=== PATIENT | female | born 1995 | race Caucasian/White ===

== ENCOUNTER → 2020-08-09 11:16 | Observation (INO) ==
[2020-08-08 21:56] LABS: Bacteria,Urine Few per hpf (None-Few); Bilirubin,Urine Negative (Negative); Blood,Urine Trace (Negative); Clarity,Urine Turbid (Clear); Color,Urine Yellow (Yellow); Glucose,Urine (UA) >=1000 mg/dL (Normal); Ketones,Urine >150 mg/dL (Negative); Leukocyte Esterase,Urine Small (Negative); Mucus,Urine Few per lpf (None-Few); Nitrite,Urine Negative (Negative); Protein,Urine 100 mg/dL (Neg-Trace); Specific Gravity,Urine > 1.030 (1.010-1.025); Squamous Epithelial Cell,Urine Few per hpf (None-Few); Urobilinogen,Urine Normal (Normal)
[2020-08-08 22:14] LABS: BUN/Creatinine Ratio 22 (6-26); Blood Urea Nitrogen 10 mg/dL (6-20); Calcium 9.1 mg/dL (8.6-10.3); Carbon Dioxide 18 mEq/L (23-29); Chloride 102 mEq/L (98-107); Glucose 144 mg/dL (70-105); Osmolality,Calculated 280 (280-300); Potassium 3.9 mEq/L (3.5-5.1); Sodium 134 mEq/L (136-145); eGFR For African Americans > 60 (> 60); eGFR For Non-African Americans > 60 (> 60)
[2020-08-08 23:10] LABS: Basophils # 0.1 K/mcL (0.0-0.2); Basophils % 0.2 %; Eosinophils # 0.1 K/mcL (0.0-0.6); Eosinophils % 0.4 %; Hematocrit 37.9 % (35.3-44.9); Hemoglobin 11.5 g/dL (11.5-15.4); Immature Granulocytes % 0.5 % (0-4); Lymphocytes # 0.5 K/mcL (0.6-4.6); Lymphocytes % 2.5 %; Mean Corpuscular HGB Conc 30.3 g/dL (31.6-35.5); Mean Platelet Volume 9.8 fL (9.4-12.4); Monocytes # 0.7 K/mcL (0.0-1.3); Monocytes % 3.1 %; Neutrophils # 20.3 K/mcL (1.6-8.9); Platelet Count 463 K/mcL (140-400); Red Blood Count 4.26 M/mcL (3.82-4.97); Red Cell Distribution Width 14.3 % (11.5-14.5); Segmented Neutrophils % 93.3 %; White Blood Count 21.8 K/mcL (4.3-11.1)
[2020-08-09 00:16] LABS: Adenovirus Not Detected (Not Detect); Bordetella Pertussis Not Detected (Not Detect); Chlamydophila pneumoniae Not Detected (Not Detect); Coronavirus 229E Not Detected (Not Detect); Coronavirus HKU1 Not Detected (Not Detect); Coronavirus NL63 Not Detected (Not Detect); Coronavirus OC43 Not Detected (Not Detect); Human Metapneumovirus Not Detected (Not Detect); Human Rhinovirus/Enterovirus Not Detected (Not Detect); Influenza A Subtype 2009 H1 Not Detected (Not Detect); Influenza B Not Detected (Not Detect); Mycoplasma pneumoniae Not Detected (Not Detect); Parainfluenza Virus 1 Not Detected (Not Detect); Parainfluenza Virus 2 Not Detected (Not Detect); Parainfluenza Virus 3 Not Detected (Not Detect); Parainfluenza Virus 4 Not Detected (Not Detect); Respiratory Syncytial Virus Not Detected (Not Detect); SARS-CoV-2 Not Detected (Not Detect)
[2020-08-09 05:14] LABS: Basophils % 0.2 %; Eosinophils # 0.1 K/mcL (0.0-0.6); Eosinophils % 0.3 %; Hematocrit 33.4 % (35.3-44.9); Hemoglobin 10.4 g/dL (11.5-15.4); Immature Granulocytes % 0.8 % (0-4); Lymphocytes # 0.9 K/mcL (0.6-4.6); Lymphocytes % 5.4 %; Mean Corpuscular HGB Conc 31.1 g/dL (31.6-35.5); Mean Corpuscular Hemoglobin 27.2 pg (28.0-33.3); Mean Corpuscular Volume 87.4 fL (83.0-100.0); Mean Platelet Volume 9.3 fL (9.4-12.4); Monocytes # 0.7 K/mcL (0.0-1.3); Monocytes % 4.5 %; Neutrophils # 14.7 K/mcL (1.6-8.9); Platelet Count 384 K/mcL (140-400); Red Blood Count 3.82 M/mcL (3.82-4.97); Red Cell Distribution Width 14.3 % (11.5-14.5); Segmented Neutrophils % 88.8 %; White Blood Count 16.6 K/mcL (4.3-11.1)
[~2020-08-09 11:16] MED LIST: Acetaminophen 325 MG TABLET PO PRN; Insulin DETEMIR 100 UNIT/ML X5UNITS SUBQ SCH; Insulin LISPRO 300 UNITS/3 ML VIAL SUBQ SCH; Ringers Solution, Lactated 1,000 ML IVC ONE; Ringers Solution, Lactated 1,000 ML IVC SCH
== END | disposition home or self-care (01) ==
LOC: 1NENULAB
PROVIDERS: ADMIT Advanced Practice Midwife; ATTEND Advanced Practice Midwife

== ENCOUNTER 2020-09-02 18:03 | Inpatient (IN) ==
[~2020-09-02 18:03] MED LIST changes: +*HR* FentaNYL (PF) 100 MCG/2 ML VIAL ONE; +*HR* Morphine Sulfate/PF 10 MG/10 ML AMPUL ONE; -Acetaminophen 325 MG TABLET PO PRN; +CeFAZolin 2,000 MG/50 ML BAG IVPB ONE; +Famotidine 20 MG/2 ML VIAL IVP ONE; -Insulin DETEMIR 100 UNIT/ML X5UNITS SUBQ SCH; -Insulin LISPRO 300 UNITS/3 ML VIAL SUBQ SCH; +Metoclopramide 10 MG/2 ML VIAL IVP ONE; +Oxytocin 20 units/ LR 1000 mL 20 UNIT/1,000 ML BAG IVC ONE; -Ringers Solution, Lactated 1,000 ML IVC SCH; +Ringers Solution, Lactated 1,000 ML ONE
[2020-09-02] MEDS ORDERED: EPHEDrine 50 MG/ML VIAL ONE (18:04)
[2020-09-02] MEDS ORDERED: *HR* Midazolam HCl 2 MG/2 ML VIAL ONE (18:04)
[2020-09-02] MEDS ORDERED: Ringers Solution, Lactated 1,000 ML IVC SCH ×2 (18:15→21:51)
[2020-09-02] MEDS ORDERED: Oxytocin 20 units/ LR 1000 mL 20 UNIT/1,000 ML BAG IVC SCH ×2 (18:15→21:51)
[2020-09-02 18:28] LABS: Basophils % 0.3 %; Eosinophils # 0.4 K/mcL (0.0-0.6); Eosinophils % 2.3 %; Hematocrit 38.2 % (35.3-44.9); Hemoglobin 11.8 g/dL (11.5-15.4); Immature Granulocytes % 0.6 % (0-4); Lymphocytes # 2.2 K/mcL (0.6-4.6); Lymphocytes % 13.9 %; Mean Corpuscular HGB Conc 30.9 g/dL (31.6-35.5); Mean Corpuscular Hemoglobin 27.2 pg (28.0-33.3); Mean Platelet Volume 9.5 fL (9.4-12.4); Monocytes # 0.7 K/mcL (0.0-1.3); Monocytes % 4.5 %; Neutrophils # 12.2 K/mcL (1.6-8.9); Platelet Count 386 K/mcL (140-400); Red Blood Count 4.34 M/mcL (3.82-4.97); Red Cell Distribution Width 14.8 % (11.5-14.5); Segmented Neutrophils % 78.4 %; White Blood Count 15.6 K/mcL (4.3-11.1)
[2020-09-02] MEDS ORDERED: *HR* Oxytocin 10 UNIT/ML VIAL IM ONE ×2 (18:48→18:50)
[2020-09-02 18:51] LABS: Influenza A PCR Negative (Negative); Influenza B PCR Negative (Negative); Resp. Syncytial Virus PCR Negative (Negative)
[2020-09-02] MEDS ORDERED: Ketorolac 30 MG/ML VIAL ONE (18:51)
[2020-09-02] MEDS ORDERED: Dexamethasone 4 MG/ML VIAL ONE (18:51)
[2020-09-02 19:15] LABS: SARS-CoV-2 by PCR (In House) Negative (Negative)
[2020-09-02] MEDS ORDERED: *HR* FentaNYL (PF) 100 MCG/2 ML VIAL ONE (19:22)
[2020-09-02] MEDS ORDERED: *HR* Dextrose 50 % in Water (Vial) 50 ML VIAL IVP PRN (20:40)
[2020-09-02] MEDS ORDERED: Dextrose Gel 15 GM/37.5 ML TUBE PO PRN ×2 (20:40)
[2020-09-02] MEDS ORDERED: D5% in Water 1,000 ML IVC PRN (20:40)
[2020-09-02] MEDS ORDERED: Ondansetron 4 MG/2 ML VIAL IVP PRN (21:51)
[2020-09-02] MEDS ORDERED: Rho Immune Globulin 1,500 UNIT SYRINGE IM ONE (21:51)
[2020-09-02] MEDS ORDERED: Metoclopramide 10 MG/2 ML VIAL IVP PRN (21:51)
[2020-09-02] MEDS ORDERED: *HR* Nalbuphine 10 MG/ML AMPUL IV PRN (21:51)
[2020-09-02] MEDS ORDERED: Sennosides 8.6 MG TABLET PO PRN (21:51)
[2020-09-03 05:59] LABS: Basophils % 0.2 %; Eosinophils % 0.1 %; Hematocrit 34.1 % (35.3-44.9); Hemoglobin 10.5 g/dL (11.5-15.4); Immature Granulocytes % 0.7 % (0-4); Lymphocytes # 1.6 K/mcL (0.6-4.6); Lymphocytes % 8.2 %; Mean Corpuscular HGB Conc 30.8 g/dL (31.6-35.5); Mean Corpuscular Hemoglobin 27.2 pg (28.0-33.3); Mean Corpuscular Volume 88.3 fL (83.0-100.0); Monocytes # 0.7 K/mcL (0.0-1.3); Monocytes % 3.6 %; Neutrophils # 17.2 K/mcL (1.6-8.9); Platelet Count 405 K/mcL (140-400); Red Blood Count 3.86 M/mcL (3.82-4.97); Red Cell Distribution Width 14.8 % (11.5-14.5); Segmented Neutrophils % 87.2 %; White Blood Count 19.8 K/mcL (4.3-11.1)
[2020-09-03] MEDS: Insulin LISPRO 300 UNITS/3 ML VIAL SUBQ SCH ×3 (07:49→16:53)
[2020-09-03] MEDS: Prenatal Vit/FA 1 EACH TABLET PO SCH (07:51)
[2020-09-03] MEDS: Ibuprofen 600 MG TABLET PO PRN ×2 (07:51→16:54)
[2020-09-03] MEDS ORDERED: Insulin LISPRO 300 UNITS/3 ML VIAL SUBQ SCH (08:00)
[2020-09-03] MEDS ORDERED: NON-FORMULARY MEDICATION 1 EACH EACH (Prenatal Vitamin Tablet 1 TAB) PO SCH (09:00)
[2020-09-03] MEDS ORDERED: Insulin DETEMIR 100 UNIT/ML X5UNITS SUBQ SCH (09:00)
[2020-09-03] MEDS: Simethicone 80 MG TAB.CHEW PO PRN (11:13)
[2020-09-03] MEDS: Acetaminophen 325 MG TABLET PO SCH ×2 (11:13→19:57)
[2020-09-03] MEDS: Insulin DETEMIR 100 UNIT/ML X5UNITS SUBQ SCH (21:46)
[2020-09-04] MEDS: Ibuprofen 600 MG TABLET PO PRN ×4 (00:58→23:17)
[2020-09-04] MEDS: *HR* OxyCODONE/APAP 5/325 TABLET PO PRN ×3 (05:02→23:17)
[2020-09-04] MEDS: Acetaminophen 325 MG TABLET PO SCH (05:02)
[2020-09-04] MEDS: Insulin LISPRO 300 UNITS/3 ML VIAL SUBQ SCH ×3 (08:09→16:50)
[2020-09-04] MEDS: Insulin DETEMIR 100 UNIT/ML X5UNITS SUBQ SCH ×2 (08:13→23:18)
[2020-09-04] MEDS: Simethicone 80 MG TAB.CHEW PO PRN (23:18)
[2020-09-05] MEDS: Ibuprofen 600 MG TABLET PO PRN ×2 (06:40→19:49)
[2020-09-05] MEDS: *HR* OxyCODONE/APAP 5/325 TABLET PO PRN ×4 (06:41→23:58)
[2020-09-05] MEDS: Acetaminophen 325 MG TABLET PO SCH ×4 (07:46→18:00)
[2020-09-05] MEDS: Prenatal Vit/FA 1 EACH TABLET PO SCH (07:59)
[2020-09-05] MEDS: Simethicone 80 MG TAB.CHEW PO PRN (07:59)
[2020-09-05] MEDS: Insulin DETEMIR 100 UNIT/ML X5UNITS SUBQ SCH ×3 (08:00→23:58)
[2020-09-05] MEDS: Insulin LISPRO 300 UNITS/3 ML VIAL SUBQ SCH ×3 (08:02→19:49)
[2020-09-06 07:27] VITALS: BP 121/75
[2020-09-06] MEDS: Insulin LISPRO 300 UNITS/3 ML VIAL SUBQ SCH ×2 (07:45→11:55)
[2020-09-06] MEDS: Ibuprofen 600 MG TABLET PO PRN (08:42)
[2020-09-06] MEDS: Acetaminophen 325 MG TABLET PO SCH ×2 (08:42→14:15)
[2020-09-06] MEDS: Prenatal Vit/FA 1 EACH TABLET PO SCH (08:43)
[2020-09-06] MEDS: *HR* OxyCODONE/APAP 5/325 TABLET PO PRN (08:52)
[2020-09-06] MEDS: Insulin DETEMIR 100 UNIT/ML X5UNITS SUBQ SCH ×2 (08:54→14:16)
== END 2020-09-06 14:54 | disposition home or self-care (01) | DRG 540 ==
LOC: 1NENULAB → 1NENUOBS 09-03 01:49
PROVIDERS: ADMIT Student in an Organized Health Care Education/Training Program; ATTEND Student in an Organized Health Care Education/Training Program

== ENCOUNTER 2022-01-17 20:32 | Inpatient (IN) ==
[2022-01-17 20:54] LABS: VBG HCO3 26 mEq/L (21-27); VBG PCO2 42 mmHg (41-51); VBG PO2 68 mmHg (25-50)
[2022-01-17 20:55] LABS: Bilirubin,Urine Negative (Negative); Blood,Urine Trace (Negative); Clarity,Urine Turbid (Clear); Color,Urine Yellow (Yellow); Glucose,Urine (UA) >=1000 mg/dL (Normal); Ketones,Urine Trace mg/dL (Negative); Leukocyte Esterase,Urine Moderate (Negative); Mucus,Urine Few per lpf (None-Few); Nitrite,Urine Positive (Negative); PH,Urine 6.5 pH Units (5.0-8.0); Protein,Urine 30 mg/dL (Neg-Trace); RBC,Urine 0-3 per hpf (0-3); Specific Gravity,Urine > 1.030 (1.010-1.025); Squamous Epithelial Cell,Urine Moderate per hpf (None-Few); Urobilinogen,Urine Normal (Normal)
[2022-01-17 20:59] LABS: Basophils % 0.4 %; Eosinophils # 0.3 K/mcL (0.0-0.6); Eosinophils % 3.5 %; Hematocrit 37.9 % (35.3-44.9); Hemoglobin 12.1 g/dL (11.5-15.4); Immature Granulocytes % 0.3 % (0-4); Lymphocytes # 2.5 K/mcL (0.6-4.6); Lymphocytes % 26.6 %; Mean Corpuscular HGB Conc 31.9 g/dL (31.6-35.5); Mean Corpuscular Hemoglobin 29.1 pg (28.0-33.3); Mean Corpuscular Volume 91.1 fL (83.0-100.0); Mean Platelet Volume 9.8 fL (9.4-12.4); Monocytes # 0.6 K/mcL (0.0-1.3); Monocytes % 5.9 %; Platelet Count 293 K/mcL (140-400); Red Blood Count 4.16 M/mcL (3.82-4.97); Red Cell Distribution Width 13.4 % (11.5-14.5); Segmented Neutrophils % 63.3 %; White Blood Count 9.5 K/mcL (4.3-11.1)
[2022-01-17 21:03] LABS: Prothrombin Time 11.6 Seconds (9.4-12.1)
[2022-01-17 21:05] LABS: Activated Partial Thrombo Time 29.2 Seconds (26.0-36.0); Amphetamine Screen,Urine Negative ng/mL (Cutoff=1000); Barbiturate Screen,Urine Negative ng/mL (Cutoff=200); Benzodiazepines Screen,Urine Negative ng/mL (Cutoff=200); Cannabinoid Screen,Urine Negative ng/mL (Cutoff = 50); Cocaine Screen,Urine Positive ng/mL (Cutoff= 300); Opiate Screen,Urine Negative ng/mL (Cutoff=300); Phencyclidine Screen,Urine Negative ng/mL (Cutoff=25)
[2022-01-17 21:15] LABS: Alanine Aminotransferase 12 Units/L (7-52); Albumin 3.8 g/dL (3.5-5.7); Albumin/Globulin Ratio 1.3 (1.1-2.2); Alkaline Phosphatase 76 Units/L (34-104); Aspartate Amino Transferase 12 Units/L (13-39); BUN/Creatinine Ratio 16 (6-26); Bilirubin,Indirect 0.2 mg/dL (0.0-1.0); Bilirubin,Total 0.2 mg/dL (0.3-1.0); Blood Urea Nitrogen 11 mg/dL (6-20); Calcium 8.6 mg/dL (8.6-10.3); Carbon Dioxide 26 mEq/L (23-29); Chloride 105 mEq/L (98-107); Ethanol < 10 mg/dL (Less than 10); Glucose 196 mg/dL (70-105); Osmolality,Calculated 291 (280-300); Potassium 3.4 mEq/L (3.5-5.1); Sodium 138 mEq/L (136-145); Total Protein 6.8 g/dL (6.4-8.9)
[2022-01-17] MEDS ORDERED: 0.9 % Sodium Chloride 1,000 ML IVC ONE (21:54)
[2022-01-17 22:04] LABS: Acetaminophen < 10 mcg/mL (10-20); Salicylate 19.2 mg/dL (15.0-30.0)
[2022-01-18 06:52] LABS: Influenza A PCR Negative (Negative); Influenza B PCR Negative (Negative); Resp. Syncytial Virus PCR Negative (Negative); SARS-CoV-2 by PCR (In House) Negative (Negative)
[2022-01-18] MEDS ORDERED: MOM Conc 10 ML UD.LIQ PO PRN (10:59)
[2022-01-18] MEDS ORDERED: hydrOXYzine pamoate 25 MG CAPSULE PO PRN (10:59)
[2022-01-18] MEDS ORDERED: Mag Hydrox/Al Hydrox/Simeth 30 ML UDC PO PRN (10:59)
[2022-01-18] MEDS ORDERED: Haloperidol Lactate 5 MG/ML VIAL IM PRN (10:59)
[2022-01-18] MEDS ORDERED: haloperidoL 5 MG TABLET PO PRN (10:59)
[2022-01-18] MEDS ORDERED: Acetaminophen 325 MG TABLET PO PRN (10:59)
[2022-01-18] MEDS ORDERED: *HR* LORazepam 2 MG/ML VIAL IM PRN (10:59)
[2022-01-18] MEDS ORDERED: *HR* LORazepam 1 MG TABLET PO PRN (10:59)
[2022-01-18] MEDS ORDERED: traZODone 50 MG TABLET PO PRN (10:59)
[2022-01-18] MEDS ORDERED: Nicotine 2 MG GUM BC PRN (13:56)
[2022-01-18] MEDS ORDERED: Artificial Tears SOLN 15 ML BOTTLE BOTH EYES PRN (14:29)
[2022-01-18] MEDS: Nitrofurantoin (BID) 100 MG CAPSULE PO SCH (17:49)
[2022-01-19 09:56] VITALS: BP 119/77; PULSE 66; TEMP 97.3; O2SAT 95
[2022-01-19] MEDS: Nitrofurantoin (BID) 100 MG CAPSULE PO SCH (10:43)
== END 2022-01-19 14:15 | disposition home or self-care (01) | DRG 817 ==
LOC: EMEROOARM 20:32 → 1ANU 01-18 09:57
PROVIDERS: ADMIT Psychiatry & Neurology Psychiatry; ATTEND Psychiatry & Neurology Psychiatry